=== PATIENT | female | born 1945 | race Caucasian/White ===

== ENCOUNTER 2022-05-18 15:08 | Outpatient (CLI) | payer MEDICARE, SELFPAY | END 2022-05-18 15:09 | disposition home or self-care (01) | LOC: FRMREF 15:09 | PROVIDERS: PCP Physician Assistant Medical; Visit Provider Family Medicine | DX: R31.9 Hematuria, unspecified (principal); N89.8 Other specified noninflammatory disorders of vagina | CPT/HCPCS: 87086 ==

== ENCOUNTER 2022-08-28 09:08 | Outpatient (CLI) | payer MEDICARE, SELFPAY ==
[2022-08-28 14:17] LABS: Albumin* 4.3 g/dL (3.3-5.0); Chloride* 108 mmol/L (96-114)
[2022-08-28 14:18] LABS: Potassium* 4.4 mmol/L (3.6-5.1); Sodium* 142 mmol/L (135-149)
[2022-08-28 14:20] LABS: Alanine Aminotransferase* 27 U/L (4-35); Alkaline Phosphatase* 75 U/L (40-150); Aspartate Amino Transferase* 30 U/L (12-35); Bilirubin Total* 0.7 mg/dL (0.1-1.5); Blood Urea Nitrogen* 18 mg/dL (7-30); Carbon Dioxide* 24 mmol/L (20-32); Cholesterol* 174 mg/dL (90-199); Creatinine* 0.9 mg/dL (0.5-1.5); Estimated Glomerular Filt Rate 65 ml/min; Glucose* 98 mg/dL (60-115); Total Protein* 7.3 g/dL (6.0-8.3)
[2022-08-28 14:21] LABS: Calcium* 9.3 mg/dL (8.4-10.6); HDL Cholesterol* 57 mg/dL (>=50); LDL Cholesterol Calculated 97 mg/dL (<100); Triglycerides* 102 mg/dL (40-149)
[2022-08-28 14:33] LABS: Vitamin D 25 Hydroxy* 73 ng/mL (30-80)
== END 2022-08-28 09:09 | disposition home or self-care (01) ==
PROVIDERS: PCP Physician Assistant Medical; Visit Provider Physician Assistant Medical
DX: E03.9 Hypothyroidism, unspecified (principal); E78.5 Hyperlipidemia, unspecified; I10 Essential (primary) hypertension; R79.89 Other specified abnormal findings of blood chemistry
CPT/HCPCS: 80053; 80061; 82306; 84443

== ENCOUNTER 2022-09-10 08:31 | Outpatient (CLI) | payer MEDICARE, SELFPAY ==
[2022-09-10 08:53] LABS: Influenza Type A Negative (Negative); Influenza Type B Negative (Negative)
== END 2022-09-10 08:32 | disposition home or self-care (01) ==
LOC: FRMREF 08:32
PROVIDERS: PCP Physician Assistant Medical; Visit Provider Physician Assistant Medical
DX: Z20.822 Contact with and (suspected) exposure to COVID-19 (principal); R05.9 Cough, unspecified
CPT/HCPCS: 87804

== ENCOUNTER 2022-11-18 12:49 | Outpatient (CLI) | payer MEDICARE, SELFPAY ==
--- NOTE | 2022-11-18 13:00 | CRLHL7_ITS ---
For Patients: As a result of the Century Cures Act, medical imaging exams and procedure reports are released immediately into your electronic medical record. You may view this report before your referring provider. If you have questions, please contact your health care provider. BILATERAL SCREENING MAMMOGRAM WITH COMPUTER-AIDED DETECTION AND TOMOSYNTHESIS TECHNIQUE: CC and MLO views were obtained. These mammographic images have been obtained using full-field digital technique. These mammographic images were interpreted with the benefit of computer-aided detection. Breast Tomosynthesis was used in this interpretation. COMPARISON FILM: 09/04/21, 08/30/20, 07/11/19 rt diag, 06/30/19. FINDINGS: There are scattered areas of fibroglandular density. IMPRESSION: There is no radiographic evidence for malignancy. ASSESSMENT: BI-RADS Category 1: Negative RECOMMENDATION: Routine screening mammogram in 1 year. A lay language report of this examination will be provided to the patient. Jefferson Arevalo M.D. Diagnostic Radiologist [email or web address] Transcribed: 12:11 p.m. PT/Dictated by: Jefferson Arevalo MD @ 11/19/2022 9:00:00 AM (Electronically Signed)
--- NOTE | 2022-11-18 13:30 | CRLHL7_ITS ---
For Patients: As a result of the Century Cures Act, medical imaging exams and procedure reports are released immediately into your electronic medical record. You may view this report before your referring provider. If you have questions, please contact your health care provider. DXA BONE MINERAL DENSITY STUDY, 11/18/2022 Reason for exam: Screening. Current height (inches): 64.0 Weight (lbs.): 195.0 Menopause age: 50 Ethnicity: White 1. Have you had a previous hip or vertebral fracture? No. 2. Have you had any fractures during your adult life which did not result from significant trauma (e.g., auto accident)? No. 3. Did either of your parents have a hip fracture? Yes. 4. Do you smoke? No. 5. Have you ever taken Glucocorticoids? Yes. 6. Do you have rheumatoid arthritis? No. 7. Do you have secondary osteoporosis? No. 8. Do you drink 3 or more alcoholic drinks per day? No. 9. Are you being treated for osteoporosis? No. 10. Have you ever taken any of the following medications: Actonel, Evista, Fosamax, Miacalcin, Reclast, Boniva, Forteo, HRT (i.e., estrogen/hormone therapy), Protelos, Prolia, Vitamin D, Calcium, other ??? please specify. ANSWER: Yes; vitamin D, calcium. 11. Do you have any of the following medical conditions: Anorexia or bulimia, asthma or emphysema, end stage renal disease, hyperparathyroidism, any seizure disorders, cancer, inflammatory bowel diseases, hysterectomy, other ??? please specify. ANSWER: No. 12. What was your maximum height (inches)? 65. 13. Do you perform weightbearing exercise regularly? No. 14. Do you regularly consume dairy products? Yes. 15. Do you drink caffeinated beverages? Yes. 16. At what age did your period start? 12. 17. Are you premenopausal? No. 18. How many full-term pregnancies have you had? 2. 19. Have you ever missed your period for more than 6 months in a row (not including or menopause)? No. TECHNIQUE: Bone mineral density study was performed using the [employer]. FINDINGS: The results of the study expressed as bone mineral density (BMD) are as follows: Lumbar Spine L1 to L2: BMD: 1.064 g/cm2. T-score: 0.8. Z-score: 3.3. Neck Left: BMD: 0.742 g/cm2. T-score: -1.0. Z-score: 1.3. Right: BMD: 0.850 g/cm2. T-score: 0.0. Z-score: 2.3. Total Left: BMD: 0.977 g/cm2. T-score: 0.3. Z-score: 2.3. Right: BMD: 1.077 g/cm2. T-score: 1.1. Z-score: 3.1. IMPRESSION: Normal bone density. JEFFERSON MORRISON M.D. Diagnostic Radiologist [email or web address] Transcribed: 12:[address]/Dictated by: Jefferson Morrison MD @ 11/19/2022 10:43:00 AM (Electronically Signed)
== END 2022-11-18 12:50 | disposition home or self-care (01) ==
LOC: MAMMO 12:52
PROVIDERS: PCP Physician Assistant Medical; Visit Provider Physician Assistant Medical
DX: Z12.31 Encounter for screening mammogram for malignant neoplasm of breast (principal); Z13.820 Encounter for screening for osteoporosis
CPT/HCPCS: 77063; 77067; 77080

== ENCOUNTER 2023-08-11 13:15 | Outpatient (CLI) | payer MEDICARE, SELFPAY | END 2023-08-11 13:16 | disposition home or self-care (01) | PROVIDERS: PCP Physician Assistant Medical; Visit Provider Physician Assistant Medical | DX: I10 Essential (primary) hypertension (principal); E03.9 Hypothyroidism, unspecified; E78.5 Hyperlipidemia, unspecified | CPT/HCPCS: 80053; 80061; 84443 ==

== ENCOUNTER 2023-10-22 11:36 | Outpatient (CLI) | payer MEDICARE, SELFPAY ==
--- NOTE | 2023-10-22 12:44 | W.ANESCHARGE ---
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
--- NOTE | 2023-10-22 13:59 | W.ANESCHARGE ---
Anesthesia Charges Start Date/Time Anesthesia Start Date: 10/22/23 Anesthesia Start Time: 12:25 Stop Date/Time Anesthesia Stop Date: 10/22/23 Anesthesia Stop Time: 12:47 Summary Extremes of Age - Over 70 or under 1: MDA
== END 2023-10-22 11:37 | disposition home or self-care (01) ==
LOC: OP CLINIC 11:36
PROVIDERS: PCP Physician Assistant Medical; Visit Provider Internal Medicine
DX: Z12.11 Encounter for screening for malignant neoplasm of colon (principal); K57.30 Diverticulosis of large intestine without perforation or abscess without bleeding; Z86.010 Personal history of colon polyps
CPT/HCPCS: 00811; 00812; 45378; 99100; J2704

== ENCOUNTER 2024-02-29 13:08 | Outpatient (CLI) | payer MEDICARE, SELFPAY ==
--- NOTE | 2024-02-29 13:20 | MM_ITS ---
Patient: BEATRIZ BEARD Facility:?[facility] Patient ID:?[id number] Site Patient ID:?[id number]. Site :?[id number] Study:?XRay-Breast Bilateral 3D W/CAD-02/29/2024 1:49:42 PM Ordering Physician:Mariposa Turner Final Report: BILATERAL DIGITAL SCREENING MAMMOGRAM WITH COMPUTER-AIDED DETECTION AND TOMOSYNTHESIS CLINICAL HISTORY: Routine screening exam. COMPARISON: 09/04/2021, 11/18/2022, 08/30/2020, 07/11/2019. TECHNIQUE: Digital mammogram in CC and MLO projections including computer-aided detection (CAD) and tomosynthesis.. BREAST COMPOSITION: There are scattered areas of fibroglandular density. FINDINGS: RIGHT Breast: Focal asymmetric density on CC view only, lateral aspect, 4 cm from the nipple. LEFT Breast: No suspicious findings. IMPRESSION: RIGHT breast asymmetry/mass. RECOMMENDATIONS: Additional mammographic views of the RIGHT breast including 3D spot compression CC and 3D true lateral. RIGHT breast ultrasound may also be required. The [facility] will contact the patient. BI-RADS Category 0: Incomplete: Need Additional Imaging Evaluation and/or Prior Mammograms for Comparison A lay language report of this examination will be provided to the patient. Dictated by Jefferson Arevalo MD @ 03/01/2024 11:56:47 AM CRL:[email or web address] RD/Dictated by: Jefferson Arevalo MD @ 03/01/2024 11:56:00 AM Signed by:?Jefferson Arevalo MD @03/01/2024 12:32:29 PM (Electronic Signature)
== END 2024-02-29 13:09 | disposition home or self-care (01) ==
PROVIDERS: PCP Physician Assistant Medical; Visit Provider Physician Assistant Medical
DX: Z12.31 Encounter for screening mammogram for malignant neoplasm of breast (principal); N63.10 Unspecified lump in the right breast, unspecified quadrant
CPT/HCPCS: 77063; 77067

== ENCOUNTER 2024-03-16 08:24 | Outpatient (CLI) | payer MEDICARE, SELFPAY ==
--- NOTE | 2024-03-16 08:45 | MM_ITS ---
Patient: BEATRIZ BEARD Facility:?[facility] Patient ID:?[id number] Site Patient ID:?[id number] Site :?1945 Study:?XRay-Breast Right 3D W/CAD-03/16/2024 9:28:54 AM Ordering Physician:Johnny Final Report: DIGITAL DIAGNOSTIC RIGHT MAMMOGRAM USING TOMOSYNTHESIS AND COMPUTER-AIDED DETECTION RIGHT BREAST ULTRASOUND CLINICAL HISTORY: RIGHT breast mass/asymmetry. COMPARISON: 02/29/2024. TECHNIQUE: Digital RIGHT mammogram in two projections. Tomosynthesis and computer-aided detection utilized. Real-time ultrasound imaging of RIGHT breast with imaging documentation. BREAST COMPOSITION: There are areas of scattered fibroglandular density. FINDINGS: 3D spot compression CC and 3D true lateral RIGHT breast mammogram images submitted. Decreased conspicuity of the previously noted asymmetric density. No suspicious mass or architectural distortion. No adenopathy or suspicious calcifications. Targeted ultrasound RIGHT breast 9 o`clock 5 cm from the nipple performed. Normal fibroglandular tissue is present. No fibrocystic change or mass. IMPRESSION: No suspicious findings. No evidence of malignancy. RECOMMENDATIONS: Annual bilateral screening mammography. Results and recommendations discussed with the patient. BI-RADS Category 2: Benign A lay language report of this examination will be provided to the patient. Dictated by Jefferson Arevalo MD @ 03/16/2024 9:50:18 AM j/Dictated by: Jefferson Arevalo MD @ 03/16/2024 9:50:00 AM Signed by:?Jefferson Arevalo MD @03/16/2024 12:27:43 PM (Electronic Signature)
--- NOTE | 2024-03-16 09:15 | US_ITS ---
Patient: BEATRIZ BEARD Facility:?[facility] Patient ID:?[id number] Site Patient ID:?[id number] Site :?1945 Study:?US-Breast Right DSM to read-03/16/2024 9:30:58 AM Ordering Physician:?Mariposa Medina Final Report: PLEASE SEE DIGITAL DIAGNOSTIC RIGHT MAMMOGRAM PERFORMED SAME DAY CRL:geno lora/Dictated by: Jefferson Arevalo MD @ 03/16/2024 9:50:00 AM Signed by:?Jefferson Arevalo MD @03/16/2024 12:27:44 PM (Electronic Signature)
== END 2024-03-16 08:25 | disposition home or self-care (01) ==
LOC: MAMMO 08:25
PROVIDERS: PCP Physician Assistant Medical; Visit Provider Physician Assistant Medical
DX: N63.10 Unspecified lump in the right breast, unspecified quadrant (principal); R92.8 Other abnormal and inconclusive findings on diagnostic imaging of breast
CPT/HCPCS: 76642; 77065; G0279

== ENCOUNTER 2024-08-30 16:00 | Outpatient (CLI) | payer MEDICARE, SELFPAY | END 2024-08-30 16:01 | disposition home or self-care (01) | LOC: NFLDREF 08-31 08:29 | PROVIDERS: PCP Physician Assistant Medical; Referring Provider Physician Assistant Medical; Visit Provider Physician Assistant Medical | DX: I10 Essential (primary) hypertension (principal); E03.9 Hypothyroidism, unspecified; E78.2 Mixed hyperlipidemia; K64.9 Unspecified hemorrhoids | CPT/HCPCS: 80053; 80061; 84443 ==

== ENCOUNTER 2025-07-09 12:33 | Outpatient (CLI) | payer MEDICARE, SELFPAY | END 2025-07-09 12:34 | disposition home or self-care (01) | LOC: NFLDREF 07-13 11:01 | PROVIDERS: PCP Physician Assistant Medical; Referring Provider Physician Assistant Medical; Visit Provider Physician Assistant Medical | DX: Z01.818 Encounter for other preprocedural examination (principal); I10 Essential (primary) hypertension; E78.2 Mixed hyperlipidemia; E03.9 Hypothyroidism, unspecified | CPT/HCPCS: 80053; 80061; 84443 ==

== ENCOUNTER 2025-07-23 08:27 | Outpatient (CLI) | payer MEDICARE, SELFPAY ==
--- NOTE | 2025-07-23 08:45 | CRLHL7_ITS ---
For Patients: As a result of the Century Cures Act, medical imaging exams and procedure reports are released immediately into your electronic medical record. You may view this report before your referring provider. If you have questions, please contact your health care provider. INDICATION: BILATERAL SCREENING MAMMOGRAM, ASYPTOMATIC 80 Y/O FEMALE COMPARISON: 03/16/2024, 02/29/2024, 11/18/2022 TECHNIQUE: Digital mammogram in CC and MLO projections including computer-aided detection (CAD) and tomosynthesis. BREAST COMPOSITION: There are scattered areas of fibroglandular density. FINDINGS: No suspicious findings. ASSESSMENT: BI-RADS 1 Negative RECOMMENDATION: Annual screening mammogram. A lay language report of this examination will be provided to the patient. Dictated by: Meghan Xie MD @ 07/25/2025 08:57:32 (Electronically Signed)
== END 2025-07-23 08:28 | disposition home or self-care (01) ==
LOC: MAMMO 08:28
PROVIDERS: PCP Physician Assistant Medical; Visit Provider Physician Assistant Medical
DX: Z12.31 Encounter for screening mammogram for malignant neoplasm of breast (principal)
CPT/HCPCS: 77063; 77067